=== PATIENT | male | born 2000 ===

== ENCOUNTER 2022-08-08 17:06 | Emergency (ER) | payer OTHER, SELFPAY ==
[~2022-08-08 17:06] MED LIST: Iopamidol-370 76% 500 ML 1 ML ONE
[2022-08-08 17:38] LABS: #Basophils 0.1 thou/uL (0.0-0.2); #Eosinphils 0.1 thou/uL (0.0-0.7); #Lymphocytes 2.7 thou/uL (1.20-3.40); #Monocytes 0.7 thou/uL (0.11-0.59); #Neutrophils 4.6 thou/uL (1.40-6.50); %Basophils 0.7 % (0.0-1.0); %Eosinophils 1.6 % (0.0-10.0); %Lymphocytes 33.6 % (21.0-51.0); %Monocytes 8.1 % (0.0-10.0); Hemoglobin 15.8 g/dL (14.0-18.0); Mean Corpuscular HGB CONC 33.2 g/dL (32.0-36.0); Mean Corpuscular Hemoglobin 29.2 pg (27.0-31.0); Platelet Count 311 10x3/uL (130-400); RBC Distribution Width 11.9 % (11.5-14.5); Red Blood Cell (RBC) Count 5.42 mill/uL (4.70-6.10); White Blood Cell (WBC) Count 8.2 10x3/uL (4.8-10.8)
[2022-08-08] MEDS ORDERED: Boostrix 0.5 ML (Tdap) VIAL (>/=7 yrs of age) ONE (17:49)
[2022-08-08 17:58] LABS: ALT (SGPT) 14 U/L (8-55); AST (SGOT) 24 U/L (5-34); Albumin 4.9 g/dL (3.5-5.0); Alkaline Phosphatase 54 U/L (40-110); Anion Gap 13 mmol/L (10-20); BUN (Urea Nitrogen) 13 mg/dL (8.9-20.6); Bilirubin, Total 0.7 mg/dL (0.2-1.2); Calc. Creatinine Clearance 0 mL/min (70-130); Calcium 9.9 mg/dL (7.8-10.44); Carbon Dioxide 22 mmol/L (22-29); Chloride 104 mmol/L (98-107); Estimated GFR 126; Globulin 2.7 g/dL (2.4-3.5); Glucose 121 mg/dL (70-105); Lipase 35 U/L (8-78); Potassium 3.1 mmol/L (3.5-5.1); Protein, Total 7.6 g/dL (6.0-8.3); Sodium 136 mmol/L (136-145)
[2022-08-08 18:03] LABS: INR-International Normal Ratio 1.1; PTT 28.4 sec (22.9-36.1); Prothrombin Time 14.8 sec (12.0-14.7)
[2022-08-08] MEDS ORDERED: Acetaminophen 500 MG TAB ONE (18:29)
== END 2022-08-08 18:44 | disposition home or self-care (01) ==
LOC: ERS 17:06
DX: S09.90XA Unspecified injury of head, initial encounter (principal); S00.212A Abrasion of left eyelid and periocular area, initial encounter; S30.811A Abrasion of abdominal wall, initial encounter; Z23 Encounter for immunization; V29.99XA Rider (driver) (passenger) of other motorcycle injured in unspecified traffic accident, initial encounter
CPT/HCPCS: 70450; 71260; 72125; 74177; 80053; 83690; 84484; 85025; 85610; 85730; 90471; 90715; 93005; G0390